=== PATIENT | male | born 2005 | race Two or more races ===

== ENCOUNTER → 2024-08-22 | Emergency (ER) | payer BC ==
[~2024-08-22] VITALS: Ht 182.9 cm; Wt 95.3 kg
== END | disposition home or self-care (01) ==
LOC: ER 11:25
DX: S99.822A Other specified injuries of left foot, initial encounter (principal); S99.821A Other specified injuries of right foot, initial encounter; X83.8XXA Intentional self-harm by other specified means, initial encounter; Y93.89 Activity, other specified; Y92.832 Beach as the place of occurrence of the external cause; Y99.8 Other external cause status; R53.81 Other malaise